=== PATIENT | female | born 1960 | race Caucasian/White ===

== ENCOUNTER 2019-12-07 12:51 | Emergency (ER) | payer OTHER ==
[2019-12-07 13:01] VITALS: BP 114/67; PULSE 97; RESP 18; TEMP 97.9
--- NOTE | 2019-12-07 13:16 | ED ---
General Adult HPI - General Chief complaint: Extremity Injury, Upper Stated complaint: rt arm injury Time Seen by Provider: 12/07/19 13:10 Source: patient, RN notes reviewed Mode of arrival: ambulatory Limitations: no limitations - History of Present Illness Initial comments: Patient is a pleasant 39-year-old female presenting to the emergency Department with complaints of right wrist injury. Patient fell around a half an hour ago on outstretched right arm. Patient is right-hand dominant. Patient complains of pain and swelling right wrist. No other area of injury or concern. No head injury or loss of consciousness. No neck or back pain. No abdominal pain. No chest pain or dyspnea. No history of injury to this area previously. - Related Data Previous Rx's Medication Instructions Recorded Ibuprofen [Motrin] 600 mg PO Q6HR PRN #20 tab 12/07/19 Allergies Allergy/AdvReac Type Severity Reaction Status Date / Time No Known Allergies Allergy Verified 12/07/19 13:01 Review of Systems ROS Statement: Those systems with pertinent positive or pertinent negative responses have been documented in the HPI. ROS Other: All systems not noted in ROS Statement are negative. Constitutional: Denies: fever Eyes: Denies: eye pain ENT: Denies: ear pain Respiratory: Denies: cough, dyspnea Cardiovascular: Denies: chest pain Endocrine: Denies: fatigue Gastrointestinal: Denies: abdominal pain Genitourinary: Denies: dysuria Musculoskeletal: Reports: arthralgia Skin: Denies: rash Neurological: Denies: headache Past Medical History Past Medical History: No Reported History History of Any Multi-Drug Resistant Organisms: None Reported Past Surgical History: Section Past Psychological History: No Psychological Hx Reported Smoking Status: Current every day smoker Past Alcohol Use History: Occasional Past Drug Use History: None Reported General Exam Limitations: no limitations General appearance: alert, in no apparent distress Head exam: Present: normocephalic Eye exam: Present: normal appearance Neck exam: Present: normal inspection. Absent: tenderness Respiratory exam: Present: normal lung sounds bilaterally Cardiovascular Exam: Present: regular rate, normal rhythm Expanded Peripheral pulses: 2+: Radial (R) GI/Abdominal exam: Present: soft. Absent: tenderness Extremities exam: Present: tenderness (Right wrist tenderness and swelling with appearance of deformity. Distally the extremity is neurovascular intact.) Back exam: Present: normal inspection Neurological exam: Present: alert. Absent: motor sensory deficit Psychiatric exam: Present: normal affect, normal mood Skin exam: Present: normal color Course Vital Signs 12/07/19 12:57 Temperature 97.9 F Pulse Rate 97 Respiratory 18 Rate Blood Pressure 114/67 O2 Sat by Pulse 99 Oximetry - Reevaluation(s) Reevaluation #1: 12/07/19 13:14 Patient refuses pain medication Procedures - Nerve Block Consent Obtained: verbal consent Local Anesthetic Used: Lidocaine 1% Side: right Nerve Blocks: hematoma block (Distal radius) Patient Tolerated Procedure: well, no complications - Orthopedic Splinting/Casting Injury #1 Side: right Upper Extremity Injury Location: short arm Upper Extremity Immobilizer: posterior splint, volar splint (Area Between posterior and volar splint to allow for swelling.), wrist splint Medical Decision Making - Medical Decision Making During splinting patient did have some pressure placed posterior to volar. Care was taken to allow bivalve of splint to allow for swelling. Patient is warned of potential applications. Examined postplacement of splint and patient is neurovascular intact. - Radiology Data Radiology results: image reviewed (Distal radius fracture with continuation.) Disposition Clinical Impression: Distal radius fracture, right Disposition: HOME SELF-CARE Condition: Stable Instructions (If sedation given, give patient instructions): Arm Fracture in Adults (ED) Additional Instructions: Please follow-up this week with orthopedics, number provided. Ice to affected area. Return for increased pain, swelling, worsening symptoms or other concerns. Motrin 600 prescription sent to your pharmacy. Prescriptions: Ibuprofen [Motrin] 600 mg PO Q6HR PRN #20 tab PRN Reason: Pain Is patient prescribed a controlled substance at d/c from ED?: No Referrals: Filemon Stevenson MD [STAFF PHYSICIAN] - 1-2 days Time of Disposition: 14:23
--- NOTE | 2019-12-07 13:41 | XR ---
EXAMINATION TYPE: XR wrist complete RT DATE OF EXAM: 12/07/2019 CLINICAL HISTORY: Fall injury with pain. TECHNIQUE: Frontal, lateral and oblique images of the right wrist are obtained. COMPARISON: None FINDINGS: There is acute transverse impacted fracture through the distal radial metaphysis with dors al angulation of distal fracture fragment. Adjacent ulna is intact. The carpal joint spaces are main tained. [id number] focal soft tissue swelling at fracture site noted. IMPRESSION: There is acute displaced transverse fracture distal right radial metaphysis.
[2019-12-07] MEDS ORDERED: LIDOCAINE 1% INJ 10MG/ML (20 ML MDV) SQ ONE (13:58)
== END 2019-12-07 14:26 | disposition home or self-care (01) ==
LOC: EC 12:51
DX: S52.501A Unspecified fracture of the lower end of right radius, initial encounter for closed fracture (principal); F17.200 Nicotine dependence, unspecified, uncomplicated; W19.XXXA Unspecified fall, initial encounter; Y92.89 Other specified places as the place of occurrence of the external cause
CPT/HCPCS: 73110; 99283; 29125; 64450; J2001